=== PATIENT | male | born 1995 | race Caucasian/White ===

== ENCOUNTER 2019-10-17 19:55 | Emergency (ER) | payer BC, OTHER ==
[2019-10-17] MEDS ORDERED: Sodium Chloride 0.9% 1,000 ML ONE (20:09)
[2019-10-17] MEDS ORDERED: Albuterol/Ipratropium 3.0-0.5 MG/3 ML Neb Soln ONE (20:09)
[2019-10-17] MEDS ORDERED: Albuterol/Ipratropium 3.0-0.5 MG/3 ML Neb Soln NEB ONE ×3 (20:13→20:57)
[2019-10-17] MEDS ORDERED: Sodium Chloride 0.9% 1,000 ML IV ONE ×2 (20:14→20:26)
[2019-10-17] MEDS ORDERED: Dexamethasone 4 MG/ML SDV IVPUSH ONE (20:26)
--- NOTE | 2019-10-17 20:34 | EDM.PDOC ---
ED HPI GENERAL MEDICAL PROBLEM - General Chief Complaint: Asthma Stated Complaint: SHORT OF BREATH Time Seen by Provider: 10/17/19 20:26 Source of Information: Reports: Patient History Limitations: Reports: No Limitations - History of Present Illness INITIAL COMMENTS - FREE TEXT/NARRATIVE: Patient is a 24-year-old gentleman who presents to the emergency department this evening with a complaint of shortness of breath. Patient has long history of asthma, and approximately 6 p.m. this evening. [place] short of breath. Patient did multiple Proventil MDI puffs but was not getting relief. Patient then decided to present to the emergency department. Patient denies fever, chest pain, nausea, vomiting, suspected covid contact, out of area travel, or known irritants. Onset: Today Onset Time: 18:00 Duration: Day(s): Location: Reports: Chest Severity: Moderate Improves with: Reports: None Worsens with: Reports: Breathing Associated Symptoms: Reports: Shortness of Breath. Denies: Chest Pain, Cough, cough w sputum, Fever/Chills, Nausea/Vomiting - Related Data Allergies Allergy/AdvReac Type Severity Reaction Status Date / Time No Known Allergies Allergy Verified 10/17/19 20:24 Home Meds: Home Meds Albuterol Sulfate [Albuterol Sulfate Hfa] 1 - 2 puff IH Q4H PRN 10/17/19 [History] Fluticasone Propionate [Flovent Hfa] 1 - 2 puff IH Q4H PRN 10/17/19 [History] ED ROS GENERAL - Review of Systems Review Of Systems: Comprehensive ROS is negative, except as noted in HPI. Constitutional: Reports: No Symptoms HEENT: Reports: No Symptoms Respiratory: Reports: Shortness of Breath, Wheezing Cardiovascular: Reports: No Symptoms Endocrine: Reports: No Symptoms GI/Abdominal: Reports: No Symptoms : Reports: No Symptoms Musculoskeletal: Reports: No Symptoms Skin: Reports: No Symptoms Neurological: Reports: No Symptoms Psychiatric: Reports: No Symptoms Hematologic/Lymphatic: Reports: No Symptoms Immunologic: Reports: No Symptoms ED EXAM, GENERAL - Physical Exam Exam: See Below Exam Limited By: No Limitations General Appearance: Alert, WD/WN, Mild Distress Nose: Normal Inspection, Normal Mucosa, No Blood Throat/Mouth: Normal Inspection, Normal Oropharynx, No Airway Compromise Head: Atraumatic, Normocephalic Neck: Normal Inspection. No: Lymphadenopathy (L), Lymphadenopathy (R) Respiratory/Chest: Chest Non-Tender, Wheezing Cardiovascular: Regular Rate, Rhythm, No Murmur GI/Abdominal: Soft, Non-Tender Back Exam: Normal Inspection Extremities: Normal Inspection, No Pedal Edema Neurological: Alert, Oriented, Normal Cognition Psychiatric: Normal Affect, Normal Mood Skin Exam: Warm, Dry, Intact, Normal Color, No Rash Lymphatic: No Adenopathy Course - Orders/Labs/Meds Orders: Active Orders 24 hr Category Date Time Status RT Aerosol Therapy [RC] ASDIRECTED Care 10/17/19 20:13 Active RT Aerosol Therapy [RC] ASDIRECTED Care 10/17/19 20:28 Ordered Albuterol/Ipratropium [DuoNeb 3.0-0.5 MG/3 ML] Med 10/17/19 20:27 Once 3 ml NEB Q4HRRT ONE Sodium Chloride 0.9% @ 999 MLS/HR (1000ml) Med 10/17/19 20:26 Ordered Sodium Chloride 0.9% [Normal Saline] 1,000 ml IV .BOLUS Sodium Chloride 0.9% [Normal Saline] 1,000 ml Med 10/17/19 20:14 Active IV .BOLUS Medication Orders Sodium Chloride (Normal Saline) 1,000 mls @ 999 mls/hr IV .BOLUS ONE Stop: 10/17/19 21:14 Last Admin: 10/17/19 20:22 Dose: 999 mls/hr Documented by: NELA Sodium Chloride (Normal Saline) 1,000 mls @ 999 mls/hr IV .BOLUS ONE Stop: 10/17/19 21:26 Meds: Medications Generic Name Dose Route Start Last Admin Trade Name Freq PRN Reason Stop Dose Admin Sodium Chloride 1,000 mls @ 999 mls/hr 10/17/19 20:14 10/17/19 20:22 Normal Saline IV 10/17/19 21:14 999 mls/hr .BOLUS ONE Administration Sodium Chloride 1,000 mls @ 999 mls/hr 10/17/19 20:26 Normal Saline IV 10/17/19 21:26 .BOLUS ONE Discontinued Medications Generic Name Dose Route Start Last Admin Trade Name Freq PRN Reason Stop Dose Admin Albuterol/Ipratropium Confirm 10/17/19 20:09 10/17/19 20:21 Duoneb 3.0-0.5 Mg/3 Ml Administered 10/17/19 20:10 Not Given Dose 3 ml .ROUTE .STK-MED ONE Albuterol/Ipratropium 3 ml 10/17/19 20:13 10/17/19 20:15 Duoneb 3.0-0.5 Mg/3 Ml NEB 10/17/19 20:14 3 ml ONETIME ONE Administration Dexamethasone 8 mg 10/17/19 20:26 Dexamethasone IVPUSH 10/17/19 20:27 ONETIME ONE Sodium Chloride Confirm 10/17/19 20:09 10/17/19 20:20 Normal Saline Administered 10/17/19 20:10 Not Given Dose 1,000 mls @ as directed .ROUTE .STK-MED ONE - Re-Assessments/Exams Free Text/Narrative Re-Assessment/Exam: 10/17/19 21:01 Patient afebrile, vital signs stable. Wheezing greatly improved. Oxygen saturation 96% on room air. Patient will be given albuterol Atrovent neb for updraft this evening, and has a follow-up with Dr. Carvajal 930 in the morning. Departure - Departure Time of Disposition: 21:07 Disposition: Home, Self-Care 01 Condition: Good Clinical Impression: Asthma attack Qualifiers: Asthma severity: moderate Asthma persistence: unspecified Qualified Code(s): J45.901 - Unspecified asthma with (acute) exacerbation - Discharge Information Instructions: Asthma, Adult, [id number], How to Use a Metered Dose Inhaler, Bronchospasm, Adult Referrals: Gladis Stanford MD [Primary Care Provider] - Additional Instructions: Follow-up in morning with Dr. Carvajal as scheduled. Return to emergency department sooner if symptoms continue or worsen. Take medication as directed. - My Orders Last 24 Hours: My Active Orders 10/17/19 20:13 RT Aerosol Therapy [RC] ASDIRECTED 10/17/19 20:14 Sodium Chloride 0.9% [Normal Saline] 1,000 ml IV .BOLUS 10/17/19 20:26 Sodium Chloride 0.9% @ 999 MLS/HR (1000ml) Sodium Chloride 0.9% [Normal Saline] 1,000 ml IV .BOLUS 10/17/19 20:27 Albuterol/Ipratropium [DuoNeb 3.0-0.5 MG/3 ML] 3 ml NEB Q4HRRT ONE 10/17/19 20:28 RT Aerosol Therapy [RC] ASDIRECTED - Assessment/Plan Last 24 Hours: My Active Orders 10/17/19 20:13 RT Aerosol Therapy [RC] ASDIRECTED 10/17/19 20:14 Sodium Chloride 0.9% [Normal Saline] 1,000 ml IV .BOLUS 10/17/19 20:26 Sodium Chloride 0.9% @ 999 MLS/HR (1000ml) Sodium Chloride 0.9% [Normal Saline] 1,000 ml IV .BOLUS 10/17/19 20:27 Albuterol/Ipratropium [DuoNeb 3.0-0.5 MG/3 ML] 3 ml NEB Q4HRRT ONE 10/17/19 20:28 RT Aerosol Therapy [RC] ASDIRECTED Assessment:: Asthma Plan: Follow-up with PCP tomorrow
== END 2019-10-17 21:20 | disposition home or self-care (01) ==
LOC: KA.ED 19:55
DX: J45.901 Unspecified asthma with (acute) exacerbation (principal)
CPT/HCPCS: 94640; 96374; 99283; 99284-25; J1100; J7030; J7620-GY